=== PATIENT | female | born 1960 | race Caucasian/White ===

== ENCOUNTER 2021-12-11 03:38 | Emergency (ER) | payer OTHER ==
[2021-12-11 04:12] LABS: BASOPHIL 0.3 % (0-2); HCT 45.7 % (37.0-47.0); HGB 15.1 g/dl (12.5-16.0); MCH 27.8 pg (25.0-31.0); MONOCYTE 4.1 % (0-12); MPV 10.7 fL (6.0-9.5); NEUTROPHIL 24.3 % (41-80); NRBC 0; PLT 224 K/uL (150-400); RBC 5.44 M/uL (4.20-5.40); RDW 13.4 % (11.5-14.0); WBC 15.4 K/uL (4.0-10.5)
[2021-12-11 04:19] LABS: ALBUMIN 4.6 g/dL (3.4-5.0); BILIRUBIN - TOTAL 0.5 mg/dL (0.2-1.0); BUN/CREAT RATIO (CALC) 28.4 RATIO; CREATININE 0.74 mg/dL (0.51-0.95); GLOBULIN (CALCULATION) 3.1 g/dL; TOTAL PROTEIN 7.7 g/dL (6.4-8.2)
[2021-12-11 04:35] LABS: CORONAVIRUS 2019 SARS-COV-2 NEGATIVE (NEGATIVE); INFLUENZA A NAA NEGATIVE (NEGATIVE)
[2021-12-11 04:46] LABS: LYMPHOCYTE 70.1 % (15-48)
[2021-12-11 06:05] LABS: BILIRUBIN NEGATIVE (NEGATIVE); BLOOD NEGATIVE Ery/uL (NEGATIVE); CLARITY CLEAR (CLEAR); COLOR YELLOW (YELLOW); GLUCOSE (U) NORMAL (NORMAL); LEUKOCYTES NEGATIVE Leu/uL (NEGATIVE); NITRITE NEGATIVE (NEGATIVE); PROTEIN NEGATIVE (NEGATIVE); SPECIFIC GRAVITY <=1.005 (1.001-1.030); UROBILINOGEN 0.2 mg/dL (0.2-1.0)
[2021-12-11 06:19] LABS: AMPHETAMINES NEGATIVE (NEGATIVE); BARBITURATES NEGATIVE (NEGATIVE); ECSTASY (MDMA) NEGATIVE (NEGATIVE); MARIJUANA (THC) NEGATIVE (NEGATIVE); METHADONE NEGATIVE (NEGATIVE); OPIATES NEGATIVE (NEGATIVE); OXYCODONE NEGATIVE (NEGATIVE)
== END 2021-12-11 06:50 | disposition home or self-care (01) ==
LOC: FER 03:38
PROVIDERS: Internal Medicine
DX: R55 Syncope and collapse (principal); D72.820 Lymphocytosis (symptomatic); R91.8 Other nonspecific abnormal finding of lung field; I25.10 Atherosclerotic heart disease of native coronary artery without angina pectoris; I10 Essential (primary) hypertension; Z28.310 Unvaccinated for COVID-19; Z20.822 Contact with and (suspected) exposure to COVID-19; Z88.5 Allergy status to narcotic agent
CPT/HCPCS: 36415; 71045; 71250; 80053; 80305; 81003; 83605; 83880; 84145; 84439; 84443; 84484; 85025; 85379; 93005; 94760; J7120; Q9967; U0002